=== PATIENT | female | born 1965 | race African-American/Black ===

== ENCOUNTER 2021-05-22 15:30 | Emergency (ER) | payer OTHER, SELFPAY ==
--- NOTE | ~2021-05-22 | XR_ITS ---
EXAMINATION: XR foot LT min 3V EXAM DATE: 05/22/2021 16:10 INDICATION: Bumped lt foot pain/swelling to top mid to distal lt foot . Initial encounter. TECHNIQUE: Left foot dorsoplantar, lateral and oblique projections obtained and reviewed. There is n o prior study for comparison. FINDINGS: Probable acute closed posttraumatic fracture at the proximal aspect of the left 5th metatar nando bone, a Drake type fracture. This finding has been indicated, marked on the examination for karl lindsey, clinical correlation. There is swelling identified overlying the dorsal aspect of the metatarsal b ones. 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 There is pes planus and small inferior calcaneal spur. There is mild 1st metatarsophalangeal joint primary osteoarthritis. IMPRESSION: 1. Probable acute nondisplaced 5th metatarsal shaft fracture proximally, Drake fracture. 2. Soft tissue swelling. 3. Other findings are chronic. Reviewed, dictated and finalized at location A.
[2021-05-22 15:45] VITALS: BP 229/130; PULSE 88; RESP 18; TEMP 36.3; O2SAT 97
--- NOTE | 2021-05-22 15:53 | ED.LOWEXIN ---
HPI - Extremity Injury (Lower) General Chief Complaint: Extremity Injury, Lower Stated Complaint: Left Foot Pain Time Seen by Provider: 05/22/21 15:53 Source: patient and RN notes reviewed Mode of arrival: ambulatory Limitations: no limitations History of Present Illness HPI Narrative: 55-year-old female presents to the [facility] with complaints of left foot pain along the great toe and first metatarsal fir 3 days. States that she bumped her toe a curb on Saturday. Patient denies any past medical or surgical history. Denies seeing any primary care provider recently. Does not take medication on a daily basis. Denies any surgical history. Reports that anytime she has had her blood pressure checked it has always been high and she does not follow. Related Data Home Medications Medication Instructions Recorded Confirmed No Home Medications 05/22/21 05/22/21 Allergies Allergy/AdvReac Type Severity Reaction Status Date / Time No Known Allergies Allergy Verified 05/22/21 15:52 Review of Systems Review of Systems: All systems reviewed & are unremarkable except as noted in HPI and below Constitutional: Constitutional: Reports no additional constitutional complaints, Denies chills, Denies fatigue, Denies fever(s) and Denies weakness Eyes: Eyes: Reports no additional eye complaints, Denies change in vision and Denies photophobia ENT: Reports system reviewed and no additional complaints, except as documented Cardiovascular: Cardiovascular: Reports no additional cardiovascular complaints and Denies chest pain Respiratory: Respiratory: Reports no additional respiratory complaints, Denies chest congestion, Denies cough and Denies dyspnea Gastrointestinal: Gastrointestinal: Reports no additional gastrointestinal complaints, Denies abdominal pain, Denies nausea and Denies vomiting Musculoskeletal: Musculoskeletal: Reports as per HPI, Denies myalgias and Reports joint swelling (Left great toe) Comments: Left foot swelling Integumentary/Breasts: Skin/Breast: Reports system reviewed and no additional complaints, except as docu, Denies pruritus and Denies rash Neurologic: Reports system reviewed and no additional complaints, except as documented, Denies dizziness, Denies headache(s), Denies focal weakness and Denies numbness Psychiatric: Psychiatric: Reports no additional psychiatric complaints Allergic/Immunologic: Allergic/Immunologic: Reports no additional allergic/immunologic complaints PMFSH Social History Social History Gender identity (if verbalized by the patient): Female Comments At the time of my signature, I reviewed and agree with the nursing past medical, surgical, social, and family history. There is no relevant family history pertinent to the patient complaint. Exam Const: General: healthy appearing, no acute distress and alert Nutritional Appearance: well nourished Orientation/consciousness: patient oriented x3 Limitations: no limitations HENMT: Head: normal to inspection Ears: external ears normal Eyes: Pupils: Equal, round and reactive pupils present Neck: Neck: normal visual inspection, no lymphadenopathy and no meningeal signs Chest: Chest palpation & inspection: normal inspection of the chest Resp: Effort & Inspection: normal respiratory effort and no use of accessory muscles Auscultation: clear to auscultation bilaterally, no crackles, no rales, no rhonchi and no wheezes Cardio: Rate: regular rate Rhythm: regular rhythm Back/Spine/Pelvis: Back: no CVA tenderness Skin: General skin exam: normal color Rashes: no rashes Neuro: General: patient oriented x3, moves all extremities, no meningeal signs and no focal motor deficits Speech: normal speech Gait exam (Neuro): Normal gait present (walks with a cane) Extrem: General: normal to inspection Course Course Emergency Course: Discussed with the patient that her blood pressure is extremely high, patient states that she will not go to the
[2021-05-22 16:20] VITALS: BP 232/114
== END 2021-05-22 16:50 | disposition home or self-care (01) ==
PROVIDERS: Emergency Provider Nurse Practitioner
DX: S92.355A Nondisplaced fracture of fifth metatarsal bone, left foot, initial encounter for closed fracture (principal); W22.09XA Striking against other stationary object, initial encounter
CPT/HCPCS: 73630; 99204; G0463